=== PATIENT | male | born 1930 | race Caucasian/White ===

== ENCOUNTER 2016-12-27 16:55 | Emergency (ER) | payer OTHER, MEDICAID ==
[2016-12-27 17:21] VITALS: RESP 20
--- NOTE | 2016-12-27 18:28 | EDPHY ---
H & P Time Seen by Provider: 12/27/16 16:55 HPI/ROS: Chief complaint. Head injury HPI. 86-year-old male here by ambulance after falling at his residence. The patient has dementia and does not recall the fall. He does not know if he lost consciousness or not. He is unable to provide details of his fall. He has significant left forehead laceration. Unsure whether he has neck pain. Denies any other injuries. Reviewing the patient's medication and does not appear that the patient is on blood thinners. Review of the records shows the patient has had a previous CVA with craniotomy ROS Constitutional. no fever/chills, no weakness Eyes. no problems with vision ENT. no sore throat, no nasal drainage Cardiovascular. no chest pain Respiratory. no shortness of breath, no cough Abdominal. no abdominal pain, no nausea/vomiting, no diarrhea . no problems urinating MS. no calf pain/swelling, no neck/back pain, no joint pain Skin. Laceration to left forehead Lymph. no swollen glands Neuro. no headache, no dizziness, no difficulty walking or with speech Past Medical/Surgical History: Seizure disorder, dementia, hypertension, Alzheimer's, hypothyroid Social History: , nonsmoker, no alcohol Smoking Status: Former smoker Physical Exam: General Appearance: Alert well-developed male somewhat uncooperative vital signs are stable Eyes: Pupils equal and round no pallor or injection. ENT, Mouth: Mucous membranes are moist. Respiratory: There are no retractions, lungs are clear to auscultation. Cardiovascular: Regular rate and rhythm. Gastrointestinal: Abdomen is soft and nontender, no masses, bowel sounds normal. Neurological: Awake and alert, sensory and motor exams grossly normal. Skin: Large stellate laceration to the left forehead Musculoskeletal: Neck is supple nontender. Extremities symmetrical, full range of motion. Psychiatric: Patient is oriented X 3, there is no agitation. Constitutional: Initial Vital Signs Temperature (C) 36.2 C 12/27/16 17:13 Heart Rate 86 12/27/16 17:13 Respiratory Rate 20 12/27/16 17:13 Blood Pressure 165/90 H 12/27/16 17:13 O2 Sat (%) 90 L 12/27/16 17:13 O2 Delivery Mode Room Air Allergies/Adverse Reactions: zonisamide Allergy (Verified 08/08/15 22:14) Home Medications: Medication Instructions Recorded Donepezil HCl [Aricept] 23 mg PO DAILY 05/23/14 Escitalopram Oxalate [Lexapro 10 10 mg PO DAILY 05/23/14 MG] Finasteride [Proscar 5 MG (*)] 5 mg PO DAILY 05/23/14 Gabapentin [Neurontin 300 MG (*)] 300 mg PO HS 05/23/14 Lacosamide [Vimpat 50 mg (*)] 50 mg PO BID 05/23/14 Levothyroxine [Synthroid 50 mcg 50 mcg PO DAILY06 05/23/14 (*)] Melatonin 10 mg PO HS 05/23/14 Memantine HCl [Namenda Xr] 28 mg PO DAILY 05/23/14 Tamsulosin HCl [Flomax 0.4 MG (*)] 0.4 mg PO DAILY18 05/23/14 guaiFENesin/DEXTROMETHORPHAN 10 ml PO Q4 PRN 05/23/14 [Robitussin Dm Oral Liquid (*)] levETIRAcetam [Keppra 500 mg (*)] 500 mg PO BID 05/23/14 Doxycycline Hyclate [Vibramycin 100 mg PO BID #0 capsule 05/26/14 100 MG (*)] Heparin [Heparin SC 5000 unit/0.5 5,000 unit SC Q8 #0 syr 05/26/14 ml (*)] Ondansetron Odt [Zofran Odt 4 mg 4 mg PO Q4 PRN #0 tab 05/26/14 (*)] Medical Decision Making - Diagnostics Imaging Results: Imaging Impressions Cervical Spine CT 12/27/16 17:39 Impression: Advanced multilevel cervical degenerative changes, similar to June 16, 2016. No acute fracture identified. Results called to Dr. Ryley Adair at 6:[address] 12/27/16 17:39 Impression: Stable noncontrast CT of the brain. Subcutaneous hematoma over the left frontal region. Results called to Dr. Ryley Adair at 6:15 PM at the time of the interpretation. CT head reviewed by me and discussed with Dr. Rivera shows evidence for old CVA and craniotomy. Encephalomalacia is present Cervical spine CT reviewed by me and discussed with Dr. Rivera shows DJD only without fracture. Procedures: Procedure: Laceration repair. Verbal consent was obtained from the patient. The 8 cm laceration on the left forehead was anesthetized in the usual fashion. The wound was irrigated, draped and explored to its base with a gloved finger. There were no deep structures involved. No tendon injury was identified. The wound was repaired with 17 5-0 prolene sutures. The wound repair was complex. The procedure was performed by myself. ED Course/Re-evaluation: Patient remained stable. Differential Diagnosis: I considered intracranial bleeding, skull fracture, cervical spine injury. I considered retained foreign body and infection potential the wound Departure - Departure Disposition: Home, Routine, Self-Care Clinical Impression: Laceration Condition: Fair Instructions: Care For Your Stitches (ED) Additional Instructions: Keep the cut clean and dry. He may shower with stitches in. Ice to left forehead next 24-48 hours. Return for signs of infection. Stitches out 5 days Referrals: Patient,NotPresent [Primary Care Provider] - As per Instructions
[2016-12-27 19:05] VITALS: O2SAT 95
[2016-12-27 19:59] VITALS: BP 148/106; PULSE 75; TEMP 97.9
== END 2016-12-27 20:01 | disposition home or self-care (01) ==
LOC: EDUNIT#
PROC: 0HQ1XZZ Repair Face Skin, External Approach (ICD-10-PCS; principal; 2016-12-27)
DX: S01.81XA Laceration without foreign body of other part of head, initial encounter (principal); I10 Essential (primary) hypertension; Z87.891 Personal history of nicotine dependence; W18.39XA Other fall on same level, initial encounter

== ENCOUNTER 2017-01-03 19:24 | Emergency (ER) | payer OTHER, MEDICAID ==
--- NOTE | 2017-01-03 19:28 | EDPHY ---
H & P HPI/ROS: CHIEF COMPLAINT: Fall HISTORY OF PRESENT ILLNESS: This is an 86-year-old male with a history of dementia who arrives by ambulance. Apparently there was a mechanical fall. The patient is unable to provide any details. When questioned he reports left forearm pain but upon 2nd questioning does not report any pain at all. Paramedics describe left hip pain. Patient denies hip pain. REVIEW OF SYSTEMS: Patient unable to provide review of systems due to his dementia. - Medical/Surgical History Hx Asthma: No Hx Chronic Respiratory Disease: No Hx Diabetes: No Hx Cardiac Disease: Yes Hx Renal Disease: No Hx Cirrhosis: No Hx Alcoholism: No Hx HIV/AIDS: No Hx Splenectomy or Spleen Trauma: No Other PMH: epilepsy, dementia, HTN; Alzhiemers, hypothyroid - Social History Smoking Status: Former smoker Additional Social History: He is retired and . He lives in a [facility]. - Physical Exam Exam: General Appearance: Alert. Vital signs reviewed. 152/93. Head: Normocephalic, atraumatic. Eyes: Pupils equal and round, no conjunctival injection, no discharge. Anicteric. ENT, Mouth: Mucous membranes are moist, no oropharyngeal erythema or edema. Neck: Nontender over cervical spine in midline. Respiratory: Lungs are clear to auscultation; no wheezes, rales, or rhonchi. Cardiovascular: Regular rate and rhythm; no murmur, rub, or gallop. Gastrointestinal: Abdomen is soft and nontender, no masses or organomegaly, bowel sounds normal. Skin: Warm and dry, no rashes on exposed skin, normal color. Back: Nontender to palpation over the thoracolumbar spine. No CVAT. Extremities: Full passive range of motion of both hips without pain. He reports some pain with palpation of the bones of his left forearm. There is no obvious deformity or swelling. Full active range of motion of both elbows and wrists. Neurological: Alert. Moving all four extremities easily and equally. Psychiatric: Flat affect. Constitutional: Initial Vital Signs Temperature (C) 36.6 C 01/03/17 19:56 Heart Rate 59 L 01/03/17 19:56 Respiratory Rate 18 01/03/17 19:56 Blood Pressure 152/83 H 01/03/17 19:56 O2 Sat (%) 94 01/03/17 19:56 O2 Delivery Mode Room Air Allergies/Adverse Reactions: zonisamide Allergy (Verified 08/08/15 22:14) Home Medications: Medication Instructions Recorded Donepezil HCl [Aricept] 23 mg PO DAILY 05/23/14 Escitalopram Oxalate [Lexapro 10 10 mg PO DAILY 05/23/14 MG] Finasteride [Proscar 5 MG (*)] 5 mg PO DAILY 05/23/14 Gabapentin [Neurontin 300 MG (*)] 300 mg PO HS 05/23/14 Lacosamide [Vimpat 50 mg (*)] 50 mg PO BID 05/23/14 Levothyroxine [Synthroid 50 mcg 50 mcg PO DAILY06 05/23/14 (*)] Melatonin 10 mg PO HS 05/23/14 Memantine HCl [Namenda Xr] 28 mg PO DAILY 05/23/14 Tamsulosin HCl [Flomax 0.4 MG (*)] 0.4 mg PO DAILY18 05/23/14 guaiFENesin/DEXTROMETHORPHAN 10 ml PO Q4 PRN 05/23/14 [Robitussin Dm Oral Liquid (*)] levETIRAcetam [Keppra 500 mg (*)] 500 mg PO BID 05/23/14 Doxycycline Hyclate [Vibramycin 100 mg PO BID #0 capsule 05/26/14 100 MG (*)] Heparin [Heparin SC 5000 unit/0.5 5,000 unit SC Q8 #0 syr 05/26/14 ml (*)] Ondansetron Odt [Zofran Odt 4 mg 4 mg PO Q4 PRN #0 tab 05/26/14 (*)] Acetaminophen 01/03/17 Calcium + D Soft Chewable Tab 01/03/17 Milk of Magnesia 01/03/17 Miralax 17 gm (*) 01/03/17 Nystatin 01/03/17 Senna-S Tablet 01/03/17 Vitamin D3 01/03/17 Medical Decision Making ED Course/Re-evaluation: I do not find reliable evidence of injury resulting from the reported mechanical fall (of which I have no details). I am able to fully range both arms and legs. Patient initially reported hip pain--that I cannot reproduce. He told me that his left forearm hurt--an xray of the left forearm does not show fracture or dislocation. There is no swelling or bruising. I do not see any lacerations or contusions on exam. I feel that he can safely return home. Departure - Departure Disposition: Home, Routine, Self-Care Clinical Impression: Fall Qualifiers: Encounter type: initial encounter Qualified Code(s): W19.XXXA - Unspecified fall, initial encounter Condition: Good Instructions: Fall Prevention (ED) Additional Instructions: 1. Follow up with your primary care physician as needed for symptoms unresolved. 2. Return to the Emergency Department for any concerning worsening of condition. Referrals: JOANA CONTRERAS [Primary Care Provider] - As per Instructions Report Scribed for: Monica Rdoriguez Report Scribed by: Ange Wilcox Date of Report: 01/03/17 Time of Report: 20:47 Physician Review and Approval Statement: 01/03/17 19:28 Portions of this note were transcribed by the medical staff physician. I, Dr. Monica Rodriguez, personally performed the history, physical exam, and medical decision- making; and confirmed the accuracy of the information in the transcribed note.
[2017-01-03 21:31] VITALS: BP 120/74; PULSE 70; RESP 16; TEMP 98.4; O2SAT 96
== END 2017-01-03 21:30 | disposition home or self-care (01) ==
LOC: EDUNIT#
DX: S59.912A Unspecified injury of left forearm, initial encounter (principal); I10 Essential (primary) hypertension; Z87.891 Personal history of nicotine dependence; W18.39XA Other fall on same level, initial encounter

== ENCOUNTER 2017-01-09 03:41 | Emergency (ER) | payer OTHER, MEDICAID ==
[2017-01-09 03:44] VITALS: RESP 18
[2017-01-09] MEDS ORDERED: OLANZapine DISINTEGR 10 MG TAB PO ONE (04:08)
[2017-01-09] MEDS ORDERED: OLANZapine DISINTEGR 10 MG TAB ONE (04:09)
--- NOTE | 2017-01-09 04:20 | EDPHY ---
H & P Stated Complaint: fall from wheelchair- reopened previous head lac HPI/ROS: HPI The patient presents brought in by ambulance from [place] with a fall which occurred just prior to arrival. The patient was sitting in his wheelchair and fell forward onto his head. He had a fall about a week and half ago and sustained a head injury with a large forehead laceration. A portion of this has opened and cause some bleeding. The patient did not lose consciousness, does not have any nausea or vomiting. He does have several visits for falls recently. REVIEW OF SYSTEMS Constitutional: No fever, no chills. Eyes: No discharge. ENT: No sore throat. Cardiovascular: No chest pain, no palpitations. Respiratory: No cough, no shortness of breath. Gastrointestinal: No abdominal pain, no vomiting. Genitourinary: No hematuria. Musculoskeletal: No back pain. Skin: No rashes. Neurological: No headache. PMHx: Alzheimer's dementia Soc Hx: From [place] PHYSICAL General Appearance: Alert, no distress Eyes: Pupils equal and round no pallor or injection Head: There is a Y shaped forehead laceration with a portion measuring about 6 cm which is gaping and actively bleeding ENT, Mouth: Mucous membranes moist Respiratory: There are no retractions, lungs are clear to auscultation Cardiovascular: Regular rate and rhythm Gastrointestinal: Abdomen is soft and non-tender, no masses, bowel sounds normal Neurological: A&O, moves all extremities Skin: Warm and dry, no rashes Musculoskeletal: Neck is supple non tender Extremities: symmetrical, full range of motion Psychiatric: Patient is confused and mildly agitated Source: Patient, EMS Exam Limitations: Clinical condition - Personal History Current Tetanus/Diphtheria Vaccine: Unsure Current Tetanus Diphtheria and Acellular Pertussis (TDAP): Unsure - Medical/Surgical History Hx Asthma: No Hx Chronic Respiratory Disease: No Hx Diabetes: No Hx Cardiac Disease: Yes Hx Renal Disease: No Hx Cirrhosis: No Hx Alcoholism: No Hx HIV/AIDS: No Hx Splenectomy or Spleen Trauma: No Other PMH: epilepsy, dementia, HTN; Alzhiemers, hypothyroid - Social History Smoking Status: Former smoker Constitutional: Initial Vital Signs Temperature (C) 36.8 C 01/09/17 03:42 Heart Rate 86 01/09/17 03:42 Respiratory Rate 18 01/09/17 03:42 Blood Pressure 156/82 H 01/09/17 03:42 O2 Sat (%) 92 01/09/17 03:42 O2 Delivery Mode Room Air Allergies/Adverse Reactions: zonisamide Allergy (Verified 01/09/17 06:17) Home Medications: Medication Instructions Recorded Donepezil HCl [Aricept] 23 mg PO DAILY 05/23/14 Escitalopram Oxalate [Lexapro 10 10 mg PO DAILY 05/23/14 MG] Finasteride [Proscar 5 MG (*)] 5 mg PO DAILY 05/23/14 Gabapentin [Neurontin 300 MG (*)] 300 mg PO HS 05/23/14 Lacosamide [Vimpat 50 mg (*)] 50 mg PO BID 05/23/14 Levothyroxine [Synthroid 50 mcg 50 mcg PO DAILY06 05/23/14 (*)] Melatonin 10 mg PO HS 05/23/14 Memantine HCl [Namenda Xr] 28 mg PO DAILY 05/23/14 Tamsulosin HCl [Flomax 0.4 MG (*)] 0.4 mg PO DAILY18 05/23/14 guaiFENesin/DEXTROMETHORPHAN 10 ml PO Q4 PRN 05/23/14 [Robitussin Dm Oral Liquid (*)] levETIRAcetam [Keppra 500 mg (*)] 500 mg PO BID 05/23/14 Doxycycline Hyclate [Vibramycin 100 mg PO BID #0 capsule 05/26/14 100 MG (*)] Heparin [Heparin SC 5000 unit/0.5 5,000 unit SC Q8 #0 syr 05/26/14 ml (*)] Ondansetron Odt [Zofran Odt 4 mg 4 mg PO Q4 PRN #0 tab 05/26/14 (*)] Acetaminophen 01/03/17 Calcium + D Soft Chewable Tab 01/03/17 Milk of Magnesia 01/03/17 Miralax 17 gm (*) 01/03/17 Nystatin 01/03/17 Senna-S Tablet 01/03/17 Vitamin D3 01/03/17 Medical Decision Making Procedures: LACERATION REPAIR Procedure: Laceration repair. Verbal consent was obtained from the patient. The linear 6 cm laceration on the forehead was anesthetized using lidocaine 1% with epinephrine. The wound was scrubbed, draped and explored to its base with a gloved finger. There were no deep structures involved. . The wound was repaired with nylon suture, 4.0. The wound repair was simple. The procedure was performed by myself. Differential Diagnosis: This is an 86-year-old male from [place] who presents brought in by ambulance for fall, landing on his head from his wheelchair with forehead laceration which has dehisced. It is gaping and will require repeat suturing. Given his fall, plan for CT scan of his head to evaluate for any subdural. Differential diagnosis includes subdural hemorrhage, subarachnoid hemorrhage, forehead laceration. In the emergency room, laceration was repaired with sutures. The patient received Zyprexa Zydis prior to this. CT scan was attempted twice and because patient is confused prior probably related to sundowning in his Alzheimer's dementia, CT scan was not obtainable. He seems to be at his baseline mental status. He does not have any hematoma. He does not have any vomiting. My suspicion for intracranial hemorrhage is low, though not 0. It seems though that the risks of sedation outweigh the benefits of CT scan given that the patient is DNR. I a plan to discharge him back to his group home where they can watch him closely and he can return if he is worse in any way. - Data Points Medications Given: Discontinued Medications Olanzapine (Zyprexa Zydis) 10 mg PO EDNOW ONE Stop: 01/09/17 04:09 Last Admin: 01/09/17 04:11 Dose: 10 mg Departure - Departure Disposition: Home, Routine, Self-Care Clinical Impression: Laceration Fall Qualifiers: Encounter type: initial encounter Qualified Code(s): W19.XXXA - Unspecified fall, initial encounter Dementia Qualifiers: Dementia type: Alzheimer's disease Alzheimer's disease onset: unspecified onset Dementia behavioral disturbance: with behavioral disturbance Qualified Code(s): G30.8 - Other Alzheimer's disease Condition: Good Instructions: Care For Your Stitches (ED), Laceration (ED) Additional Instructions: Your stitches should be removed in 7 days. We were not able to obtain a CT scan of the brain. If there are any changes in his mental status, vomiting, he should return to the emergency room immediately. Referrals: JOANA CONTRERAS [Primary Care Provider] - As per Instructions
[2017-01-09 06:29] VITALS: BP 164/86; PULSE 77; TEMP 97.7; O2SAT 93
== END 2017-01-09 06:28 | disposition home or self-care (01) ==
LOC: EDUNIT#
PROC: 0HQ1XZZ Repair Face Skin, External Approach (ICD-10-PCS; principal; 2017-01-09)
DX: S01.81XA Laceration without foreign body of other part of head, initial encounter (principal); G30.8 Other Alzheimer's disease; I10 Essential (primary) hypertension; Z87.891 Personal history of nicotine dependence; W05.0XXA Fall from non-moving wheelchair, initial encounter

== ENCOUNTER 2017-06-23 18:48 | Emergency (ER) | payer OTHER, MEDICAID ==
--- NOTE | 2017-06-23 18:57 | EDPHY ---
H & P HPI/ROS: CHIEF COMPLAINT: Altered mental status HISTORY OF PRESENT ILLNESS: The patient is an 87 y/o male with a history of dementia and epilepsy arriving via EMS from [place] after reportedly becoming unresponsive during a verbal argument with another resident at his custodial. There was no physical injury. He has a history of frequent falling but did not fall today to the best of my knowledge. No seizure activity reported. He started talking while in the ambulance. He is currently complaining of a stinging pain all over. He is able to tell me his name. Denies shortness of breath, headache, numbness or other pertinent symptoms. REVIEW OF SYSTEMS: A ten point review of systems was performed and is negative with the exception of the items mentioned in the HPI. 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 Past medical history: Epilepsy Dementia Hypertension Hypothyroid BPH Generalized muscle weakness-- with repeated falls Past surgical history: Surgery for epilepsy Family history: Denies Social history: Lives at [place] Retired General Appearance: Alert. Vital signs reviewed. Head: Normocephalic atraumatic. Eyes: Pupils equal and round, no conjunctival injection, no discharge. Anicteric. ENT, Mouth: Mucous membranes are moist, no oropharyngeal erythema or edema. Neck: No lymphadenopathy, supple. Nontender to palpation over the cervical spine in the midline. Respiratory: Lungs are clear to auscultation; no wheezes, rales, or rhonchi. Cardiovascular: Regular rate and rhythm; no murmur, rub, or gallop. Gastrointestinal: Abdomen is soft and nontender, no masses or organomegaly, bowel sounds normal. Skin: Warm and dry, no rashes on exposed skin, normal color. Back: Nontender to palpation over the thoracolumbar spine. No CVAT. Extremities: No lower extremity edema, no calf tenderness or swelling. Neurological: Alert, oriented to person only but not place. Moving all four extremities easily and equally. MIKE. EOMI. Tongue midline. Facial expressions symmetric. Psychiatric: Cooperative. Perseverating a bit. - Medical/Surgical History Hx Asthma: No Hx Chronic Respiratory Disease: No Hx Diabetes: No Hx Cardiac Disease: Yes Hx Renal Disease: No Hx Cirrhosis: No Hx Alcoholism: No Hx HIV/AIDS: No Hx Splenectomy or Spleen Trauma: No Other PMH: epilepsy, dementia, HTN; Alzhiemers, hypothyroid - Social History Smoking Status: Former smoker Constitutional: Initial Vital Signs Temperature (C) 36.7 C 06/23/17 18:48 Heart Rate 69 06/23/17 18:48 Respiratory Rate 16 06/23/17 18:48 Blood Pressure 133/77 H 06/23/17 18:48 O2 Sat (%) 94 06/23/17 18:48 O2 Delivery Mode Room Air Allergies/Adverse Reactions: zonisamide Allergy (Verified 01/09/17 06:17) Home Medications: Medication Instructions Recorded Donepezil HCl [Aricept] 23 mg PO DAILY 05/23/14 Escitalopram Oxalate [Lexapro 10 10 mg PO DAILY 05/23/14 MG] Finasteride [Proscar 5 MG (*)] 5 mg PO DAILY 05/23/14 Gabapentin [Neurontin 300 MG (*)] 300 mg PO HS 05/23/14 Lacosamide [Vimpat 50 mg (*)] 50 mg PO BID 05/23/14 Levothyroxine [Synthroid 50 mcg 50 mcg PO DAILY06 05/23/14 (*)] Melatonin 10 mg PO HS 05/23/14 Memantine HCl [Namenda Xr] 28 mg PO DAILY 05/23/14 Tamsulosin HCl [Flomax 0.4 MG (*)] 0.4 mg PO DAILY18 05/23/14 guaiFENesin/DEXTROMETHORPHAN 10 ml PO Q4 PRN 05/23/14 [Robitussin Dm Oral Liquid (*)] levETIRAcetam [Keppra 500 mg (*)] 500 mg PO BID 05/23/14 Doxycycline Hyclate [Vibramycin 100 mg PO BID #0 capsule 05/26/14 100 MG (*)] Heparin [Heparin SC 5000 unit/0.5 5,000 unit SC Q8 #0 syr 05/26/14 ml (*)] Ondansetron Odt [Zofran Odt 4 mg 4 mg PO Q4 PRN #0 tab 05/26/14 (*)] Acetaminophen 01/03/17 Calcium + D Soft Chewable Tab 01/03/17 Milk of Magnesia 01/03/17 Miralax 17 gm (*) 01/03/17 Nystatin 01/03/17 Senna-S Tablet 01/03/17 Vitamin D3 01/03/17 Medical Decision Making ED Course/Re-evaluation: The patient is an 87 y/o male with a history of dementia and epilepsy arriving via EMS after becoming " unresponsive " during a verbal argument. Apparently he just stopped talking to anyone and would not interact at all. The staff reported that they thought he was "playing bed ". He is complaining of a stinging pain all over; everywhere that I touch him he states hurts. His physical exam is normal. I have not found evidence of traumatic injury. 650mg PO Tylenol administered. 1934: Reassessed patient, family is now at bedside. His son tells me that he seems to be talking to himself more than usual but otherwise is at his baseline. On re-examination, he is oriented to name but not place. He is not complaining of pain is much. 2009: Adriana Roman will take the patient back; patient and his son are comfortable with this plan. Return precautions provided. I do not think that he needs additional emergency department evaluation. I have not found evidence of traumatic injury. No one witnessed seizure and he did not seem postictal when he arrived here. I have not drawn labs but I have no reason to suspect infection, electrolyte abnormality, or intoxicants. - Data Points Medications Given: Discontinued Medications Acetaminophen (Tylenol) 650 mg PO EDNOW ONE Stop: 06/23/17 19:14 Last Admin: 06/23/17 19:38 Dose: 650 mg Departure - Departure Disposition: Home, Routine, Self-Care Clinical Impression: Altered mental status Qualifiers: Altered mental status type: transient alteration of awareness Qualified Code(s) : R40.4 - Transient alteration of awareness Condition: Good Instructions: Altered Mental Status (ED) Additional Instructions: Follow-up with your primary doctor within 72 hours. Return to the Emergency Department for fever, chest pain, shortness of breath, increasing pain or other worsening of condition. Referrals: JOANA CONTRERAS [Primary Care Provider] - As per Instructions Report Scribed for: Monica Rodriguez Report Scribed by: Mily Steiner Date of Report: 06/23/17 Time of Report: 19:17 Physician Review and Approval Statement: 06/23/17 18:57 Portions of this note were transcribed by the medical collections specialist. I, Dr. Monica Rodrgiuez, personally performed the history, physical exam, and medical decision- making; and confirmed the accuracy of the information in the transcribed note.
[2017-06-23 19:13] VITALS: RESP 16; TEMP 98.1; O2SAT 94
[2017-06-23] MEDS ORDERED: ACETAMINOPHEN 325 MG TAB PO ONE (19:13)
[2017-06-23 21:01] VITALS: BP 147/98; PULSE 68
== END 2017-06-23 20:57 | disposition home or self-care (01) ==
LOC: EDUNIT#
DX: R40.4 Transient alteration of awareness (principal); G30.9 Alzheimer's disease, unspecified; I10 Essential (primary) hypertension; Z87.891 Personal history of nicotine dependence